=== PATIENT | female | born 1990 | race Native Hawaiian/Other Pacific Islander ===

== ENCOUNTER 2020-06-12 00:17 | Emergency (ER) | payer MEDICAID ==
--- NOTE | 2020-06-12 00:32 | Event Note ---
ED Screening Note Date of service: 06/12/20 Time: 00:31 ED Screening Note: 29-year-old female presents to the emergency room for sharp abdominal pain with slight nausea and reports that she is 9 weeks . Patient denies any vaginal bleeding. She is 4 para to 2 last menstrual period was April 08, 2020. This initial assessment/diagnostic orders/clinical plan/treatment(s) is/are subject to change based on patients health status, clinical progression and re- assessment by fellow clinical providers in the ED. Further treatment and workup at subsequent clinical providers discretion. Patient/guardian urged not to elope from the ED as their condition may be serious if not clinically assessed and managed. Initial orders include:
[2020-06-12] MEDS ORDERED: SODIUM CHLORIDE 0.9% 1000 ML 1,000 ML IV ONE ×2 (00:43→02:00)
--- NOTE | 2020-06-12 00:43 | Emergency Department Report ---
ED Abdominal Pain HPI - General Chief Complaint: Abdominal Pain Stated Complaint: 9WKS PREG/SHARP PAIN LOWER ABD Time Seen by Provider: 06/12/20 00:36 Source: patient Mode of arrival: Ambulatory Limitations: No Limitations - History of Present Illness Initial Comments: Patient is 29 years old female 4 para 2 with 1 miscarriage. Patient is 9 weeks . Patient presented to the ER complaining of sudden onset of lower abdominal pain. Patient described her pain as sharp. Patient also stated that she has been dizzy since the beginning of the pain. Patient denied any vomiting however stated that she has been having some nausea. Patient denied any vaginal bleeding or vaginal discharge. Patient found to have a blood pressure of 70/40. IV line was immediately started and patient started normal saline. Stat ultrasound ordered. Possibility of ruptured ectopic is really high. Patient will be monitor closely. MD Complaint: abdominal pain -: This morning - Related Data Allergies Allergy/AdvReac Type Severity Reaction Status Date / Time No Known Allergies Allergy Verified 06/12/20 00:28 ED Review of Systems ROS: Stated complaint: 9WKS PREG/SHARP PAIN LOWER ABD Other details as noted in HPI Comment: All other systems reviewed and negative Constitutional: denies: chills, fever Respiratory: denies: cough, shortness of breath, SOB with exertion Cardiovascular: denies: chest pain, palpitations Gastrointestinal: abdominal pain, nausea. denies: vomiting, diarrhea, constipation, hematemesis, melena, hematochezia Genitourinary: denies: frequency, hematuria, abnormal menses Neurological: denies: headache ED Past Medical Hx - Past Medical History Previous Medical History?: No - Surgical History Past Surgical History?: No - Social History Smoking Status: Never Smoker Substance Use Type: None ED Physical Exam - General Limitations: No Limitations General appearance: alert, in no apparent distress - Head Head exam: Present: atraumatic, normocephalic, normal inspection - Eye Eye exam: Present: normal appearance - ENT ENT exam: Present: normal exam, normal orophraynx, mucous membranes moist - Neck Neck exam: Present: normal inspection. Absent: tenderness, meningismus - Respiratory Respiratory exam: Present: normal lung sounds bilaterally - Cardiovascular Cardiovascular Exam: Present: regular rate, normal rhythm, normal heart sounds - GI/Abdominal GI/Abdominal exam: Present: soft, normal bowel sounds. Absent: distended, tenderness, guarding, rebound, rigid, organomegaly, mass, bruit, pulsatile mass, hernia - Extremities Exam Extremities exam: Present: normal inspection, full ROM, normal capillary refill. Absent: tenderness - Back Exam Back exam: Present: normal inspection, full ROM. Absent: CVA tenderness (R), CVA tenderness (L) - Neurological Exam Neurological exam: Present: alert, oriented X3, CN II-XII intact - Psychiatric Psychiatric exam: Present: normal mood - Skin Skin exam: Present: warm, intact, normal color ED Course Vital Signs 06/12/20 06/12/20 06/12/20 00:24 00:25 00:29 Temperature 98.2 F Pulse Rate 74 Respiratory 16 Rate Blood Pressure 68/20 74/36 Blood Pressure [Right] O2 Sat by Pulse 98 Oximetry 06/12/20 06/12/20 06/12/20 00:50 01:00 01:16 Temperature Pulse Rate 61 63 72 Respiratory 18 19 20 Rate Blood Pressure 108/43 108/43 Blood Pressure [Right] O2 Sat by Pulse 98 100 100 Oximetry 06/12/20 06/12/20 06/12/20 01:30 01:46 01:54 Temperature Pulse Rate 80 73 Respiratory 15 20 Rate Blood Pressure 108/43 79/42 Blood Pressure 92/43 [Right] O2 Sat by Pulse 100 94 Oximetry 06/12/20 06/12/20 06/12/20 02:00 02:16 02:30 Temperature Pulse Rate 59 L 65 71 Respiratory 17 20 19 Rate Blood Pressure 94/38 121/54 108/73 Blood Pressure [Right] O2 Sat by Pulse 100 100 Oximetry ED Medical Decision Making - Lab Data Result diagrams: 06/12/20 00:32 06/12/20 00:32 - Radiology Data Radiology results: report reviewed - Medical Decision Making Patient is 29 years old female 4 para 2 with 1 miscarriage. Patient is 9 weeks . Patient presented to the ER complaining of sudden onset of lower abdominal pain. Patient described her pain as sharp. Patient also stated that she has been dizzy since the beginning of the pain. Patient denied any vomiting however stated that she has been having some nausea. Patient denied any vaginal bleeding or vaginal discharge. Patient found to have a blood pressure of 70/40. IV line was immediately started and patient started normal saline. Stat ultrasound ordered. Possibility of ruptured ectopic is really high. Patient will be monitor closely. Labs reviewed and is unremarkable. Patient received normal saline. Patient stated that she is feeling much better. ultrasound showed gestational sac. No evidence of ectopic at this moment. Patient inform about her ultrasound report and strongly advised to follow-up with her OB doctor in the next 2 to 3 days. Patient also advised to return to the ER if she develop any new symptoms or if her symptoms get worse. Critical care attestation.: If time is entered above; I have spent that time in minutes in the direct care of this critically ill patient, excluding procedure time. ED Disposition Clinical Impression: Abdominal pain affecting Disposition: DC-01 TO HOME OR SELFCARE Is pt being admited?: No Condition: Stable Instructions: Abdominal Pain (ED), Abdominal Pain During , [id number] Referrals: ART BUTT MD [Primary Care Provider] - 3-5 Days
[2020-06-12 01:16] LABS: Basophils # (Auto) 0.1 K/mm3 (0.0-0.1); Eosinophils # (Auto) 0.1 K/mm3 (0.0-0.4); Eosinophils % (Auto) 1.7 % (0.0-4.3); Hematocrit 36.6 % (30.3-42.9); Hemoglobin 12.3 gm/dl (10.1-14.3); Lymphocytes # (Auto) 2.3 K/mm3 (1.2-5.4); Lymphocytes % (Auto) 27.7 % (13.4-35.0); Mean Corpuscular HGB Conc 34 % (30-34); Mean Corpuscular Volume 83 fl (79-97); Monocytes # (Auto) 0.6 K/mm3 (0.0-0.8); Monocytes % (Auto) 7.8 % (0.0-7.3); Platelet Count 206 K/mm3 (140-440); Red Cell Distribution Width 13.7 % (13.2-15.2)
[2020-06-12 01:23] LABS: Alanine Aminotransferase 30 units/L (7-56); Albumin 4.6 g/dL (3.9-5); Blood Urea Nitrogen 12 mg/dL (7-17); Hemolysis Index 3
[2020-06-12 01:33] LABS: BUN/Creatinine Ratio 30
--- NOTE | 2020-06-12 02:22 | Ultrasound Report ---
EARLY OBSTETRICAL ULTRASOUND INDICATION: 9 week 2 day , pelvic pain COMPARISON: None pertinent available TECHNIQUE: Transabdominal FINDINGS: Uterus measures 11.6 cm in length. A moderate fluid collection is seen in the endometrial c anal the fundus which probably is a gestational sac. However, no pole or yolk sac are seen. No cardiac activity was detected. I cannot completely confirm this collection as a gestational sac. At t he lower margin a 6 mm possible implantational bleed is seen. Left ovary measures 2.3 cm in length and shows no abnormalities. Right ovary is not visualized. No ad nexal masses are obvious. No free fluid is seen. IMPRESSION: Probable intrauterine gestational sac as above, not completely confirmed. I do not see ev idence of viability. Ectopic is not excluded though I do not see evidence of that process. Follow-up is needed. Signer Name: Junior Valdez MD Signed: 06/12/2020 2:17 AM Workstation Name: [id number]
[2020-06-12 03:08] VITALS: BP 94/38
[2020-06-12 03:41] LABS: Bacteria,Urine 1+ /HPF (Negative); Bilirubin,Urine NEG (Negative); Blood,Urine NEG (Negative); Color,Urine Colorless (Yellow); Protein,Urine <15 mg/dL mg/dL (Negative); Urobilinogen,Urine < 2.0 mg/dL (<2.0)
== END 2020-06-12 03:23 | disposition home or self-care (01) ==
LOC: ED 00:17
DX: O26.891 Other specified pregnancy related conditions, first trimester (principal); R10.30 Lower abdominal pain, unspecified; Z3A.09 9 weeks gestation of pregnancy
CPT/HCPCS: 36415; 76801; 80053; 81001; 84702; 85025; 86850; 86900; 86901; 96360; 96361; 99284; J7030